=== PATIENT | male | born 1945 | race Caucasian/White ===

== ENCOUNTER → 2017-05-18 | Outpatient (CLI) | payer MEDICARE ==
--- NOTE | 2017-05-18 14:22 | CONS ---
CONSULTATION DATE OF SERVICE: 05/18/2017 71-year-old gentleman has been evaluated in the sleep center for possible obstructive sleep apnea-hypopnea syndrome. HISTORY OF PRESENT ILLNESS/SLEEP WAKE EVALUATION: Patient usual sleep schedule from around 10:00 p.m. to 7:30 a.m. No problems with falling asleep. No TV in bedroom. He sleeps with his on the side position with snoring and witnessed episodes of stopped breathing during the sleep. He wakes up from sleep 2 times with nocturia. No history of hypnagogic hallucinations, sleep paralysis or cataplexy. [place] Sleepiness Scale is 1. PAST MEDICAL HISTORY: Positive for hypertension, hyperlipidemia. PAST SURGICAL HISTORY: Bilateral knee replacement. Hernia repair. MEDICATIONS: Pravastatin, fiber caps, meloxicam, atorvastatin, aspirin. SOCIAL HISTORY: Negative for smoking or using alcohol. FAMILY HISTORY: Hypertension, heart problems, arthritis, emphysema, lung problems, during sleep. REVIEW OF SYSTEMS: Awakenings from sleep with nocturia during. PHYSICAL EXAM: GENERAL: gentleman without distress. VITAL SIGNS: BP 125/75, HR 56, RR 16, height 5 feet 10 inches, weight 308, BMI 44.1, neck 18 inches in circumference. Temperature 97.8, oxygen saturation at room air 95%. HEENT: PERRLA, EOMI, evaluation of oropharynx showed moderately low position of soft palate, some nasal septum deviation, possible restriction of nasal breathing. NECK: Supple, no JVD. Thyroid is not palpable. LUNGS: Clear to percussion and to auscultation. Good air exchange. No wheezing or rhonchi. HEART: S1, S2 regular. No murmurs, gallops, or rubs. ABDOMEN: Obese. Soft and nontender. Bowel sounds are present. No organomegaly appreciated. EXTREMITIES: No clubbing or cyanosis. REAL ESTATE INTERN: Awake, alert, and oriented X3. Cranial nerves 2 to 7 intact. There is no fasciculation or atrophy. noted. No focal deficits observed. IMPRESSION: 1. Snoring, witnessed episodes of stopped breathing during sleep, low position of soft palate, nocturia, wide neck, obstructive sleep apnea-hypopnea syndrome. 2. Obesity, BMI 44.13. 3. Hypertension. 4. Hyperlipidemia. 5. Status post bilateral knee replacement. 6. Status post hernia repair surgery. PLAN: 1. Polysomnography for evaluation of patient's breathing during sleep. 2. CPAP/BiPAP titration if sleep study confirms obstructive sleep apnea-hypopnea syndrome. 3. Preferable position during sleep on the side. 4. No driving if patient feels any sleepiness. Patient is aware of civil and criminal liability for unsafe driving. 5. I will see patient for follow up visit to explain results of testing and following plan. Thank you very much for referring this patient for consultation. Sincerely, Blu Ritchie MD, PhD, FAASM Diplomat of [place] [employer] [place] [employer] Geologist [facility] [place] MMODL / IJN: [id number] /
== END | disposition home or self-care (01) ==
LOC: SLEEP 13:20
PROVIDERS: ATTEND Internal Medicine
DX: G47.33 Obstructive sleep apnea (adult) (pediatric) (principal); E66.9 Obesity, unspecified; Z68.41 Body mass index [BMI] 40.0-44.9, adult; I10 Essential (primary) hypertension; E78.5 Hyperlipidemia, unspecified; Z96.653 Presence of artificial knee joint, bilateral; Z79.899 Other long term (current) drug therapy; Z79.1 Long term (current) use of non-steroidal anti-inflammatories (NSAID); Z79.82 Long term (current) use of aspirin; Z98.890 Other specified postprocedural states
CPT/HCPCS: 99211

== ENCOUNTER → 2017-07-20 | Outpatient (CLI) | payer MEDICARE ==
--- NOTE | 2017-07-20 15:02 | PN ---
PROGRESS NOTE DATE OF SERVICE: 07/20/2017 A 71-year-old gentleman who has been followed in the Sleep Center for treatment of severe obstructive sleep apnea-hypopnea syndrome. Patient had polysomnogram and CPAP titration and I discussed results of sleep studies with the patient and his family in details. Patient has very severe obstructive sleep apnea, was started on treatment with CPAP and able to use equipment basically every night without problems related to mask fitting, pressure, humidification. According to his , no snoring with the machine. [place] Sleepiness Scale today is 0. I checked his CPAP unit. Usage is 100% of the time more than 4 hours, average 9.1 hours. Pressure in the range of 12-1/2 cm of water. It is in automatic regimen in the range between 7 and 20. Apnea-hypopnea index for the last night 2.2, for the last month 4.4 average, which is perfect range. No significant periodic limb movements during the night according to the patient's . MEDICATIONS: Pravastatin, meloxicam, atorvastatin. PHYSICAL EXAM: Patient in no distress. BP 134/83, HR 68, RR 16, weight 318, temp 97.6, oxygen saturation at room air 93%. OROPHARYNX: Extremely low position of soft palate. ABDOMEN: Obese. Neck Supple, no JVD. Thyroid is not palpable. LUNGS Clear to percussion and to auscultation. Good air exchange. No wheezing or rhonchi. HEART S1, S2 regular. No murmurs, gallops, or rubs. EXTREMITIES No clubbing or cyanosis. BOX ICER Awake, alert, and oriented X3. Cranial nerves 2 to 7 intact. There is no fasciculation or atrophy. noted. No focal deficits observed. IMPRESSION: 1. Extremely severe obstructive sleep apnea-hypopnea syndrome; apnea-hypopnea index 87 with oxygen desaturation of 69.5 on control with CPAP. Patient demonstrated 100% compliance with treatment, benefitting from treatment. 2. Obesity. 3. Hypertension. 4. Periodic limb movements during titration. Clinically, no periodic limb movements at the present time. 5. Hyperlipidemia. 6. Status post hernia repair. 7. Status post bilateral knee replacement. PLAN: 1. Continue treatment with CPAP every night. 2. Losing weight. 3. Sleep hygiene with regular time bed for at least 8 hours. 4. No driving if feeling any sleepiness. 5. Followup visit in 10 months or earlier if patient has any problems. Thank you very much for allowing me to participate in management of your patient. Sincerely, Blu Ritchie MD, PhD, FAASM Diplomat of [employer] of [employer] Medicine Meat Cutting Teacher of [facility] [place] MMODL / SCOOTER: [id number] /
== END | disposition home or self-care (01) ==
LOC: SLEEP 13:51
PROVIDERS: ATTEND Internal Medicine
DX: G47.33 Obstructive sleep apnea (adult) (pediatric) (principal); G47.61 Periodic limb movement disorder; I10 Essential (primary) hypertension; E66.9 Obesity, unspecified; E78.5 Hyperlipidemia, unspecified; Z99.89 Dependence on other enabling machines and devices; Z79.899 Other long term (current) drug therapy; Z96.653 Presence of artificial knee joint, bilateral; Z98.890 Other specified postprocedural states

== ENCOUNTER → 2018-06-20 | Outpatient (CLI) | payer MEDICARE ==
--- NOTE | 2018-06-20 18:12 | PN ---
PROGRESS NOTE DATE OF SERVICE: 06/20/2018 72-year-old gentleman who has been followed in Sleep Center for treatment of obstructive sleep apnea-hypopnea syndrome. The patient continued to use his CPAP equipment every night for the whole night. According to his , no snoring with the machine. [place] Sleepiness Scale today is 0. I checked his CPAP unit range of the pressure 7-20. Most of the time pressure is 12.1 cm of water. Usage, 30/30 nights for more than 4 hours, average 9.2 hours. Leak is 16 L/minute which is acceptable. Apnea-hypopnea index for the last month 6.3, for the 6 months, 5.8. MEDICATIONS: Pravastatin, meloxicam, atorvastatin. PHYSICAL EXAM: Patient is in no distress. VITAL SIGNS: BP 123/75, HR 61, RR 18, height 5 feet 10 inches, weight 306.2, body mass index 43.9, temperature 97.9. Oxygen saturation at room air 93%. Oropharynx: Extremely low position of soft palate. ABDOMEN: Obese. Neck Supple, no JVD. Thyroid is not palpable. LUNGS Clear to percussion and to auscultation. Good air exchange. No wheezing or rhonchi. HEART: S1, S2 regular. No murmurs, gallops, or rubs. ABDOMEN: Obese. Soft and nontender. Bowel sounds are present. No organomegaly appreciated. EXTREMITIES No clubbing or cyanosis. LEAN MANUFACTURING ENGINEER Awake, alert, and oriented X3. Cranial nerves 2 to 7 intact. There is no fasciculation or atrophy. noted. No focal deficits observed. IMPRESSION: 1. Extremely severe obstructive sleep apnea-hypopnea syndrome; apnea-hypopnea index 87 with oxygen desaturation to 69.5% on control with CPAP. The patient demonstrated 100% compliance with treatment benefitting from treatment. 2. Obesity, patient lost 12 pounds since previous visit around 1 year ago. 3. Hypertension. 4. Hyperlipidemia. 5. Status post hernia repair. 6. Status post bilateral knee replacement. PLAN: 1. Patient will continue to use CPAP equipment every night. 2. Continue losing weight. 3. Sleep hygiene with regular time bed for at least 8 hours. 4. No driving if feeling sleepiness. 5. We will maintain all necessary prescription for CPAP supplies including nasal mask, tube, filters. Thank you very much for allowing me to participate in management of your patient. Sincerely, Blu Ritchie MD, PhD, FAASM Diplomat of [place] [employer] [employer] of Internal Medicine Washtub Worker Helper [facility] [place] MMANUEL / SCOOTER: [id number] /
== END ==
LOC: SLEEP 15:35
PROVIDERS: ATTEND Internal Medicine
DX: G47.33 Obstructive sleep apnea (adult) (pediatric) (principal); E66.9 Obesity, unspecified; I10 Essential (primary) hypertension; E78.5 Hyperlipidemia, unspecified; Z98.890 Other specified postprocedural states; Z96.653 Presence of artificial knee joint, bilateral; Z99.89 Dependence on other enabling machines and devices; Z79.1 Long term (current) use of non-steroidal anti-inflammatories (NSAID); Z79.899 Other long term (current) drug therapy

== ENCOUNTER → 2020-01-23 | Outpatient (CLI) | payer MEDICARE ==
--- NOTE | 2020-01-24 03:57 | SFUN ---
SLEEP CENTER FOLLOW UP NOTE DATE OF SERVICE: 01/23/2020. This 74-year-old gentleman has been followed in Sleep Center for treatment of obstructive sleep apnea-hypopnea syndrome. The patient continued to use his CPAP equipment every night for the whole night. No snoring with the machine. I checked his CPAP unit, range of the pressure 7 to 20, usage 30 out of 30 nights. Average usage is 8.9 hours per night. Leak is 16 L/minute, which is borderline. Apnea- hypopnea index is 3.7, which is in normal range. [place] Sleepiness Scale is 0. MEDICATIONS: Meloxicam, lisinopril, hydrochlorothiazide, aspirin, pravastatin, PHYSICAL EXAMINATION: GENERAL: Patient in no distress. VITAL SIGNS: BP 195/53, HR 72, RR 16, height 5 feet 10 inches, weight 316. Patient increased his weight on 10 pounds since previous visit. Body mass index 45.3, temperature 98.1 oxygen saturation at room air 95%. HEENT: PERRLA, EOMI. Oropharynx extremely low position of soft palate. Mallampati 4. NECK: Supple, no JVD. Thyroid is not palpable. LUNGS: Clear to percussion and to auscultation. Good air exchange. No wheezing or rhonchi. HEART: S1, S2 regular. No murmurs, gallops, or rubs. ABDOMEN: Obese. EXTREMITIES: No clubbing or cyanosis. JAWBONE BREAKER: Awake, alert, and oriented X3. Cranial nerves 2 to 7 intact. There is no fasciculation or atrophy. noted. No focal deficits observed. IMPRESSION: 1. Obstructive sleep apnea-hypopnea syndrome in extremely severe range, AHI 87 with oxygen saturation 69.5%. The patient demonstrated 100% compliance with treatment benefitting from treatment. 2. Obesity. 3. Hypertension. 4. Hyperlipidemia. 5. Status post hernia repair. 6. Status post bilateral knee replacement. PLAN: 1. Patient will continue to use PAP equipment every night for the whole night. 2. Sleep hygiene with regular time in bed for at least 7-1/2 to 8 hours. 3. Precautions related to driving. No driving if feeling sleepiness. 4. I will maintain all necessary prescription for PAP supplies including mask, tube, filters. 5. Watching weight. 6. No driving if feeling sleepiness. 7. Follow-up visit in 6 months or earlier if patient has any problems. Thank you very much for allowing me to participate in management of your patient. Sincerely, Blu Ritchie MD, PhD, FAASM Diplomat of [place] [employer] Specialties [employer] Board of Internal Medicine Paper Ruler of [facility] [place] MMANUEL / SCOOTER: [id number] /
== END | disposition home or self-care (01) ==
LOC: SLEEP 14:49
PROVIDERS: ATTEND Internal Medicine
DX: G47.33 Obstructive sleep apnea (adult) (pediatric) (principal); Z53.8 Procedure and treatment not carried out for other reasons

== ENCOUNTER → 2021-01-14 | Outpatient (CLI) | payer MEDICARE ==
--- NOTE | 2021-01-15 07:14 | SFUN ---
SLEEP CENTER FOLLOW UP NOTE DATE OF SERVICE: 01/14/2021 INTERVAL HISTORY: This 75-year-old gentleman has been followed in Sleep Center for treatment of obstructive sleep apnea-hypopnea syndrome. The patient is using his CPAP equipment every night for the whole night and getting his supplies on time. [place] Sleepiness Scale today is 5, which is normal. I checked his CPAP unit. Range of the pressure 7-20 with average pressure 11.8 cm of water. Usage is 30/30 nights for more than 4 hours with average usage 9 hours per night. Leak is 16 L/minutes which is borderline. Apnea-hypopnea index is 4.0, which is in normal range. MEDICATIONS: Meloxicam 15 mg once a day, lisinopril hydrochlorothiazide 20/12.5 mg once a day, aspirin 81 mg once a day, pravastatin 10 mg once a day. PHYSICAL EXAMINATION: GENERAL: Patient is in no distress. VITAL SIGNS: BP 119/71, HR 58, RR 15, height 5 feet 10 inches, weight 319.6, temperature 96.7, oxygen saturation 96%. Body mass index 45.7. The patient increased his weight by 3 pounds comparing to the previous visit. HEENT: PERRLA, EOMI, evaluation of oropharynx showed tongue protrudes midline. Extremely low position of soft palate, Mallampati 4. NECK: Supple, no JVD. Thyroid is not palpable. LUNGS: Clear to percussion and to auscultation. Good air exchange. No wheezing or rhonchi. HEART: S1, S2 regular. No murmurs, gallops, or rubs. ABDOMEN: Obese, soft and nontender. Bowel sounds are present. No organomegaly appreciated. EXTREMITIES: No clubbing or cyanosis. CIVIL ENGINEERING DESIGNER: Awake, alert, and oriented X3. Cranial nerves 2 to 7 intact. There is no fasciculation or atrophy. noted. No focal deficits observed. IMPRESSION: 1. Obstructive sleep apnea-hypopnea syndrome. Patient demonstrated 100% compliance with treatment. Normal respirations on CPAP, originally extremely severe sleep apnea with apnea-hypopnea index 87 and oxygen desaturation to 69%. 2. Obesity. 3. Hyperlipidemia. 4. Hypertension. 5. Status post hernia repair. 6. Status post bilateral knee replacement. PLAN: PLAN 1. Patient will continue to use PAP equipment every night for the whole night. 2. Sleep hygiene with regular time in bed for at least 7-1/2 to 8 hours. 3. Precautions related to driving. No driving if feeling sleepiness. 4. I will maintain all necessary prescription for PAP supplies including mask, tube, filters. 5. Aggressive weight loss program. 6. Follow-up visit in 6 months or earlier if patient has any problems. Thank you very much for allowing me to participate in the management of your patient. Sincerely, Blu Ritchie MD, PhD, FAASM Diplomat of [place] [employer] Specialties Sleep Medicine Board of [place] Board of Internal Medicine Prepared Foods Associate of [facility] [place] MMODL / IJN: [id number] /
== END ==
LOC: SLEEP 10:09
PROVIDERS: ATTEND Internal Medicine
DX: G47.33 Obstructive sleep apnea (adult) (pediatric) (principal); E66.9 Obesity, unspecified; E78.5 Hyperlipidemia, unspecified; I10 Essential (primary) hypertension; Z96.653 Presence of artificial knee joint, bilateral; Z98.890 Other specified postprocedural states; Z68.42 Body mass index [BMI] 45.0-49.9, adult; Z79.899 Other long term (current) drug therapy

== ENCOUNTER → 2021-11-04 | Outpatient (CLI) | payer MEDICARE ==
[2021-11-04 08:42] VITALS: PULSE 76; RESP 16; TEMP 98
--- NOTE | 2021-11-04 08:47 | P.CON ---
Consult Note - . Consult date: 11/04/21 Assessment/Plan:: HISTORY OF PRESENT ILLNESS: 75 yr old male with at side as a referral from Dr Beebe presents today with chronic and severe lower back pain secondary to retrolisthesis, disc bulges, neuroforaminal stenoses and facet arthropathy for evaluation. Patient states his lower back pain is 8 out of 10 in intensity every morning, dull, achy, constant, stiff sensation but with rest and stretching, it reduces to 4 out of 10 in intensity of which it is currently. Admits to sharp, burning radiating pain to the back of the hips. Pain is relieved with medications (Tylenol, aspirin), injections (2 sets of facet blocks of the medial branches L4-L5, L5-S1 with 80% relief x 5 days each), physical therapy 1 year ago, home- based stretching regimen, repositioning and rest. PMH: HTN, Hyperlipidemia PSH: TKA x 2. Carpal Tunnel Release. Hernia Repair. SH: No tobacco use. Occasional ETOH use. No illicit drug use. and lives with spouse. FH: Non contributory All: NKDA Meds: See list REVIEW OF ORGAN SYSTEMS: CONSTITUTIONAL: No fevers or chills. No recent weight loss. HEENT: No visual acuity loss, eye pain, difficulties with hearing. No nosebleeds. No difficulty swallowing. RESPIRATORY: Denies any troubles with breathing or dyspnea on exertion. CARDIOVASCULAR: Denies any chest pain, palpitations, or recent heart attacks. GASTROINTESTINAL: Denies fatty food intolerance. Has change in bowel habits and gas bloat. GENITOURINARY: Denies any blood in urine. Has increased urinary frequency. NEUROLOGICAL: + numbness and tingling along the distal extremities. No seizure disorders or headaches. MUSCULOSKELETAL: + back pain SKIN: No skin cancer. No rash. PSYCHIATRIC: Denies current depression or suicidal thoughts. ENDOCRINE: Denies current thyroid disorders. Denies any blood sugar glucose intolerance. HEME/LYMPHATIC: Denies any lumps and bumps around the neck. History of deep venous thrombosis. ALLERGY/IMMUNOLOGY: No immunoglobulin therapy. No immune deficiencies. BREAST: Denies current breast lumps, pain or nipple discharge. Physical Examinations : Constitutional : Cooperative , not in acute distress . HEENT: Neck supple. No Lymphadenopathy. Normal thyroid size . Eyes no ptosis , no icterus, no photophobia . Hearing intact. Normal oropharynx. No Thrush. Respiratory : Chest clear to auscultations bilaterally. No wheezing. No rhonchi. Cardiovascular : Regular rate and rhythm , S1 / S2. No S3 . No S4. Gastrointestinal : Abdomen soft. No tenderness. Bowel sounds x 4. No organomegaly . OBESE ABD. Genitourinary : Deferred. Neurologic : Cranial nerve II to XII intact. No focal neurological deficits. Psychiatric : alert & oriented x 3. Matching mood & appropriate affect. Judgment & insight intact. Lymphatic No Lymphadenopathy. Musculoskeletal : Cervical Spine Motor strength in the deltoid and biceps: Normal right side. Normal Left side Motor strength biceps and the wrist extensors: Normal right side . Normal left side Motor strength in the triceps muscle: Normal right side. Normal left side Deep tendon reflexes: Normal at the biceps. Normal at Brachioradialis. Normal at triceps Cervical facet loading test: positive bilaterally Spurling test: positive bilaterally Neck distraction test: positive bilaterally J Luis sign: positive bilaterally Lumbar spine Motor strength lower extremities ,thigh and legs 5/5 Right side , 5/5 Left side Deep tendon reflexes : Normal Knee Jerk. Normal Ankle Jerk Vertebral body tenderness over Lumbar facet Loading Test: positive Right / positive Left Range of motion of the lumbar spine Flexion 30 degrees, extension 10 degrees Straight Leg Raise test: Left/ Right positive at degree Angelica test: positive right / positive left. Severe tenderness over the Sacroiliac joint on the Right / Left sides Gaenslen test: positive bilaterally Seated flexion test: positive bilaterally. Imaging: MRI without contrast of the Lumbar spine from 06/04/19 reviewed. Assessment/ Plan : Lumbar DH, Lumbar DDD, Lumbar spondylosis Recommendation of RFA of the BL L4-L5, L5-S1. Risks, benefits of procedure discussed and patient verbalized understanding. Denies anti- coagulant use or medical history of diabetes. All questions answered. I have spent greater than 50 minutes on patient care today. Dr Sweet was available by phone for the evaluation of this patient. The time was used to review the medical records including relevant urine studies and Prescription history (MAPs), review of the available imaging, evaluation and examination of the patient, coordination of care with the medical staff and if applicable referring physicians, as well as creation of the medical record PQRS Measure Charge Sheet Mode of Arrival: Ambulatory - Pain Location Bilateral Lower Back Non-Pharmacological Interventions: Heat, Ice, Physical Therapy Pharmacological Interventions: PRN Medication PQRS Narrative: Pain Intensity [Bilateral 5 Lower Back] Scale Used Numeric (1 - 10) Hx Alcohol Use (MH) No
== END ==
LOC: PNWHC3 07:56
PROVIDERS: ATTEND Specialist
DX: M51.36 Other intervertebral disc degeneration, lumbar region (principal); M47.816 Spondylosis without myelopathy or radiculopathy, lumbar region; M51.26 Other intervertebral disc displacement, lumbar region; I10 Essential (primary) hypertension; E78.5 Hyperlipidemia, unspecified
CPT/HCPCS: 99211

== ENCOUNTER 2021-12-03 09:20 | Day surgery (SDC) | payer MEDICARE ==
[2021-12-02 10:31] VITALS: BMI 40.0
[~2021-12-03 09:20] MED LIST: LACTATED RINGERS 1,000 ML IV SCH; LIDOCAINE 1% (10MG/ML) FOR IV START INTRADERMA PRN
[2021-12-03 09:43] VITALS: TEMP 97.6
[2021-12-03] MEDS ORDERED: MIDAZOLAM 2 MG/2 ML VIAL ONE (10:30)
[2021-12-03] MEDS ORDERED: ROPIVACAINE 5MG/ML 20ML VIAL ONE (10:30)
[2021-12-03] MEDS ORDERED: fentaNYL (PF) 50 MCG/ML 2 ML AMP ONE (10:30)
[2021-12-03] MEDS ORDERED: methylPREDNISolone ACETATE 40 MG/ML 1 ML VIAL ONE (10:30)
--- NOTE | 2021-12-03 11:04 | P.PCN ---
Date of Procedure: 12/03/21 Procedure(s) Performed: PREOPERATIVE DIAGNOSIS: 1-Lumbar Spondylosis with Facet Arthropathy without myelopathy. 2- Lumber degenerative disc disease. POSTOPERATIVE DIAGNOSIS: 1- Lumbar Spondylosis with Facet Arthropathy without myelopathy. 2- Lumber degenerative disc disease. PROCEDURES : Bilateral Radiofrequency thermocoagulation, L3 , L4 , and L5 medial branch, with fluoroscopic guidance (fluoroscopy images available in the radiology department) ( to denervate the facet joint at bilateral L4-5 ,and L5-S1 levels ). ANESTHESIA: Monitored anesthesia care as per anesthesia department . EBL: Minimal PROCEDURE INDICATION: The patient with low back pain secondary to lumbar facet arthropathy who had more than 50% relief of her pain with previous diagnostic lumbar medial branch block with bupivacaine. PROCEDURE DESCRIPTION / TECHNIQUE: The patient was seen and identified in the preoperative area. Risks, benefits, complications, including but not limited to risk of infection ,bleeding , allergic reactions to the medications and no complete pain releife , and alternatives were discussed with the patient, the patient agreed to proceed with the procedure and signed the consent. IV was started. Vital signs remained stable throughout the procedure. Patient was taken to the OR and time out was completed. The patient was placed in the prone position on the procedure table. The lumber area was prepped and draped in the usual sterile fashion. . Vital signs were closely monitored during the procedure .IV sedation was used during the procedure to decrease patients anxiety. Using AP and then oblique fluoroscopy, the ``eye of the Seth dog co rresponding to the connection between the superior and transverse articular processes of right L3, L4, and L5 were identified, marked, and localized with 1% lidocaine. Subsequently, a 18 -lj radiofrequency cannula with a 10- mm active tip was advanced guided by fluoroscopy to each of the``eyes of the Seth dog at right L3, L4, and L5. Each site then underwent sensory testing at 50 Hz and 0 to 1 volt and motor testing at 2.5 Hz and 0 to 3 volt with local stimulation, but no radicular symptoms down the legs. Thereafter each sites underwent radiofrequency thermocoagulation at 80 degrees celsius for 90 seconds after injecting 0.5 ml of PF Ropivacaine 1ml, then after the thermocoagulation done , 1 ml of the block solution containing Depo-Medrol 20 mg and 3 ml of Ropivacaine 0.5% was injected at the right L3 , L4 , and L5 , levels after negative aspiration of CSF and blood and with no paresthesias. Cannulas were retracted while injecting lidocaine 1% until the needle is out. The same procedure was repeated at the level of Left L3, L4, and L5 levels. At the end of the procedure, the skin was cleansed and bandages were applied. COMPLICATIONS: No acute complications. DISPOSITION / PLANS: The patient was placed in a supine position and transferred to the recovery area in a stable condition for observation and was discharged from the recovery room after meeting discharge criteria. Home discharge instructions given to the patient by the staff. The patient was reexamined prior to discharge. The patient will schedule a follow up in the clinic in 2-4 weeks.
[2021-12-03] MEDS ORDERED: IV FLUID CONTINUATION 1,000 ML IV ONE (11:08)
[2021-12-03 11:12] VITALS: PULSE 62; RESP 16
[2021-12-03 11:36] VITALS: BP 114/76
--- NOTE | 2021-12-03 11:46 | FL ---
Fluoroscopy INDICATION: Pain FINDINGS: Fluoroscopy time: 32 seconds. Images obtained: 6. IMPRESSIONS: 1. Documentation of fluoroscopy.
== END 2021-12-03 11:53 | disposition home or self-care (01) ==
LOC: ORPAIN 09:20
PROVIDERS: ATTEND Specialist
DX: M47.816 Spondylosis without myelopathy or radiculopathy, lumbar region (principal)
CPT/HCPCS: 64635; 64636; J2250; J1030; J3010; J2795

== ENCOUNTER → 2021-12-27 | Outpatient (CLI) | payer MEDICARE ==
[2021-12-27 09:26] VITALS: BP 146/78; PULSE 53; RESP 18
--- NOTE | 2021-12-27 09:44 | P.PAINPG ---
Objective - Vital Signs Vital signs: Vital Signs Temp Pulse 53 L 12/27/21 09:22 Resp 18 12/27/21 09:22 BP 146/78 12/27/21 09:22 Pulse Ox 98 12/27/21 09:22 FiO2 Intake & Output 12/26/21 12/27/21 12/27/21 18:59 06:59 18:59 Weight 133.81 kg PQRS Measure Charge Sheet Mode of Arrival: Ambulatory Comment: A 76 yr old male with at side with a history of severe and chronic low back pain secondary to lumbar degenerative disc diseases and lumbar spondylosis with facet arthropathy presents today for evaluation s/p BL RFA L4-L5, L5-S1. He states he experienced 75% pain relief s/p procedure. Pain level is currently at 4/10 in intensity, sore/achy/sharp in the lower aspects of his lumbar spine but escalates as high as 9/10 with standing/walking for periods of 10 min or more, or with laying on his R side. Pain is alleviated with PT in 2019, home exercise regimen, chiropractic treatments in the past, medications (Tylenol arthritis BID), repositioning and rest. Interventional pain procedures completed include BL RFA L3-L5 Patient is currently on Tylenol arthritis Patient denies any side effects of the medication(s), denies excessive drowsiness or sleepiness, denies suicidal ideation and reports that the current pain medication is helping to control the pain and improve activities of daily living. Patient denies any motor or sensory deficits. Patient denies any fever or night sweats, denies any change in the bowel movements or urination. Physical Examination: -Constitutional: Cooperative. Not in acute distress . - Neurologic: Cranial nerve II to XII intact. No focal neurological de ficits. - Psychatric: Alert & oriented x 3. Matching mood & appropriate affect. Judgment and insight intact. - Musculoskeletal: Cervical spine: Muscle bulk/ tone/ strength in the bilateral upper extremities normal Vertebral body tenderness to palpation over Spurling test positive Distraction test positive Facet loading test positive Thoracic spine Muscle bulk / tone/ strength in the bilateral paraspinal muscles normal Vertebral body tender to palpation over Facet loading test positive Lumbar spine: Motor bulk/ tone/ strength lower extremities , thigh and legs : 5/5 Deep tendon reflexes : Normal Knee Jerk. Normal Ankle Jerk . Vertebral body tenderness to palpation over Lumbar Facet Loading Test positive Straight Leg Raise: positive at 30 degrees right side/ left side Gaenslen's Test positive Sacral spine : Severe tenderness over the Sacroiliac joint: right side / left side Range of motion: Flexion of the lumbar spine <60 degrees Range of motion: Extension of the lumbar spine <20 degrees Gaenslen's Test positive Kwadwo's Test positive Angelica test: positive right side / left side Thigh Thrust Test Sacral Thrust Test Assessment and plan: Chronic low back pain secondary to lumbar degenerative disc disease , lumbar spondylosis with facet arthropathy without myelopathy Pt exhibited sufficient and substantial pain relief status post procedure. Discussed home based pain modifying regimen. Also filled diclofenac gel. Patient may return trough office on an as-needed basis. Risks, benefits of procedure discussed and pt verbalized understanding. Denies anticoagulant use or medical history of diabetes. All patient questions answered MAPS reviewed and it was appropriate. Prescription for Diclofenac gel, apply as directed, disp 1 tube w 1 refill. I have spent less than 30 minutes on patient care today. Dr Sweet was available by phone for the evaluation of this patient. The time was used to review the medical records including relevant urine studies and Prescription history (MAPs), review of the available imaging, evaluation and examination of the patient, coordination of care with the medical staff and if applicable referring physicians, as well as creation of the medical record - Pain Location Lower Back Non-Pharmacological Interventions: Chiropractic Treatment, Home Exercise, Inactivity, Physical Therapy, Position/Reposition, Sitting, Stretching Pharmacological Interventions: Block, PRN Medication PQRS Narrative: Blood Pressure 146/78 Pain Intensity [Lower Back] 4 Scale Used Numeric (1 - 10) Hx Alcohol Use (MH) No Home Medications: Ambulatory Orders Acetaminophen [Tylenol] 500 mg PO Q4-6H PRN 12/02/21 Aspirin [Children's Aspirin] 81 mg PO DAILY 12/02/21 Lisinopril-Hctz 20-12.5 mg [Zestoretic 20-12.5] 1 tab PO DAILY 12/02/21 Pravastatin Sodium [Pravachol] 10 mg PO DAILY 12/02/21 calcium polycarbophiL [Fibercon] 625 mg PO DAILY 12/02/21 Diclofenac Sodium Gel [Voltaren Gel] 100 gm TOPICAL BID 30 Days #100 gm 12/27/21 Controlled Substance Measures - Controlled Substance Measures Is patient prescribed a controlled substance at discharge?: No
== END ==
LOC: PNWHC3 09:08
PROVIDERS: ATTEND Specialist
DX: M51.36 Other intervertebral disc degeneration, lumbar region (principal); M47.816 Spondylosis without myelopathy or radiculopathy, lumbar region; G89.29 Other chronic pain
CPT/HCPCS: 99211

== ENCOUNTER → 2022-05-25 | Outpatient (CLI) | payer MEDICARE ==
--- NOTE | 2022-05-25 14:45 | P.PN ---
Subjective DATE: 05/25/2022 FOLLOW UP VISIT. Patient with obstructive sleep apnea hypopnea syndrome return to sleep center for follow-up visit. Information from previous visit have been reviewed. Patient is using PAP equipment every night for the whole night, getting PAP supplies in time. The patient does not have significant problems with the mask, PAP unit and humidification. [place] sleepiness scale is 3, which is normal. I checked information from PAP unit. PAP unit pressure 7-20, average 11.3 cm H2O. Usage is 100 % for more then 4 hours, average 9.7 hours per night. Leak is 23 l/m, which is in acceptable range. Apnea Hypopnea Index is 3.8, which is normal. MEDICATIONS:1. Pravastatin 20 mg once a day 2. Lisinopril/ hydrochlorothiazide 20-12.5 mg once a day 3. Carvedilol 3.125 mg twice a day 4.Xarelto 20 mg once a day 5. B12 During physical exam: GENERAL: A pleasant patient without any distress. VITAL SIGNS: BP 105/71, HR 94, RR 16, weight 282, BMI 40.4 temperature 98.0, oxygen saturation at room air 95 % . HEENT: PERRLA, EOMI.low position of soft palate, Mallapati 4 . NECK: Supple. No JVD. LUNGS: Clear to percussion and to auscultation. Good air exchange. No wheezing or rhonchi. HEART: S1, S2 regular. ABDOMEN: Soft and nontender. Obese EXTREMITIES: No clubbing or cyanosis. TARGET AIRCRAFT CONTROLLER: Awake, alert, and oriented x3. No focal deficit. Impressions: 1. Obstructive sleep apnea-hypopnea syndrome. Patient demonstrated great compliance with treatment, benefiting from treatment. 2. Obesity, patient lost about 40 pounds. 3. Hypertension. 4. Hyperlipidemia. 5. Status post bilateral knee replacement. 6. Status post hernia repair. Plan: 1. Continue using PAP equipment every night for the whole night. 2. To change air filter at least 1-2 times per month. 3. PAP unit should stay lower then position of the head. 4. Advised patient to remove all remaining water from humidifier canister daily and make it dry after each usage. Refill canister with fresh distilled water before each usage. 5. Sleep hygiene with regular time in bed for at least 8 hours. 6. Precautions related to driving. No driving if feel any sleepiness. 7. I will maintain prescription for PAP supplies including mask, tube, filters. 8. Follow up visit in 6 months or earlier if patient has any problems. 9. Watching and continue losing weight. Thank you very much for allowing me to participate in the management of your patient. Blu Ritchie MD, PhD, FAASM. Diplomat of [place] [employer], Sleep Medicine Board by [employer] [employer] [facility] [place]
== END | disposition home or self-care (01) ==
LOC: SLEEP 14:10
PROVIDERS: ATTEND Internal Medicine
DX: G47.33 Obstructive sleep apnea (adult) (pediatric) (principal); E11.9 Type 2 diabetes mellitus without complications; I10 Essential (primary) hypertension; E66.9 Obesity, unspecified; Z98.890 Other specified postprocedural states; Z96.653 Presence of artificial knee joint, bilateral

== ENCOUNTER 2022-06-06 08:09 | Day surgery (SDC) | payer MEDICARE ==
[2022-06-02 10:29] VITALS: BMI 42.0
[~2022-06-06 08:09] MED LIST changes: +SODIUM CHLORIDE 0.9% 1,000 ML IV SCH
[2022-06-06 08:54] VITALS: RESP 18; TEMP 98.8
[2022-06-06] MEDS ORDERED: PROPOFOL 10 MG/ML 20 ML VIAL IV ONE (09:35)
[2022-06-06] MEDS ORDERED: LIDOCAINE 2% INJ 20 MG/ML (2 ML VIAL) ONE (09:35)
--- NOTE | 2022-06-06 09:47 | P.HPCAR ---
History of Present Illness This is Dr. Carver dictating an H/P on this patient The patient was interviewed and examined IMPRESSION / ASSESSMENT: Persistent atrial fibrillation Recently started on flecainide Started on xarelto in April Failed chemical cardioversion with flecainide Increased BMI Hypertension PLAN: Proceed with electrical cardioversion today Twelve-lead EKG thereafter HPI Patient complains of tiredness and fatigue and shortness of breath He has failed flecainide for chemical cardioversion of atrial fibrillation He takes Xarelto 20 mg daily His blood pressure is well controlled He is steadily losing weight and he has lost over 40 pounds with dietary alterations He denies any chest discomfort or undue shortness of breath no cough phlegm or expectoration ROS: No fever chills or rigors, no cough, phlegm or expectoration, no nausea, vomiting or diarrhea, no hematuria, dysuria, no musculoskeletal complaints, no strokes or seizures, no skin lesions. EXAMINATION: Afebrile 98.8F pulse rate irregular 9500 beats a minute, blood pressure normal 129/83 mmHg Pulse ox 97% Breath sounds are clear no rhonchi no crackles Orthopnea No lower extremity edema No JVD Increased BMI BMI 42 REVIEW OF LABS, ECG & MEDICAL DATA Currently on Pravachol, lisinopril hydrochlorothiazide, carvedilol, xarelto and flecainide Physical Exam Vitals: Vital Signs Temp Pulse Resp BP Pulse Ox 06/06/22 08:35 98.8 F 95 18 129/83 97 Intake and Output 06/05/22 06/06/22 06/06/22 22:59 06:59 14:59 Intake Total 0 Balance 0 Intake: IV 0 Other: Weight 129 kg Past Medical History Past Medical History: Atrial Fibrillation, Hyperlipidemia, Hypertension, Osteoarthritis (OA), Sleep Apnea/CPAP/BIPAP Additional Past Medical History / Comment(s): C-PAP MACHINE, LOWER BACK PAIN (RECEIVES INJECTIONS) History of Any Multi-Drug Resistant Organisms: None Reported Past Surgical History: Hernia Repair, Orthopedic Surgery Additional Past Surgical History / Comment(s): VEGA TOTAL KNEES., RECEIVES BACK INJECTIONS (DR HART) Past Anesthesia/Blood Transfusion Reactions: No Reported Reaction Past Psychological History: No Psychological Hx Reported Smoking Status: Never smoker Past Alcohol Use History: Occasional Past Drug Use History: None Reported - Past Family History Mother Family Medical History: No Reported History Physical Examination Vital Signs Temp Pulse Resp BP Pulse Ox 06/06/22 08:35 98.8 F 95 18 129/83 97 Intake and Output 06/05/22 06/06/22 06/06/22 22:59 06:59 14:59 Intake Total 0 Balance 0 Intake: IV 0 Other: Weight 129 kg Results Current Medications Generic Name Dose Route Start Last Admin Trade Name Aleksandrq PRN Reason Stop Dose Admin Sodium Chloride 1,000 mls @ 50 mls/hr 06/06/22 06:06 06/06/22 08:40 Saline 0.9% IV 07/06/22 06:07 0 mls .Q20H LUDWIG Administration Lactated Ringer's 1,000 mls @ 20 mls/hr 06/06/22 06:06 Lactated Ringers IV 07/06/22 06:07 .Q24H LUDWIG Lidocaine HCl 0.1 ml 06/06/22 06:06 Lidocaine 1% (10mg/Ml) For Iv Start INTRADERMA 07/06/22 06:07 PER PROTOCOL PRN IV Start Intake and Output 06/05/22 06/06/22 06/06/22 22:59 06:59 14:59 Intake Total 0 Balance 0 Intake: IV 0 Other: Weight 129 kg Patient Weight 06/07/22 06:59 Weight 129 kg
--- NOTE | 2022-06-06 10:34 | P.EPPROC ---
- EP Procedure Note Electrophysiology Procedure Note: Diagnosis Persistent atrial fibrillation, symptomatic with tiredness and fatigue Failed chemical cardioversion with flecainide Patient on xarelto 20 mg by mouth daily Procedure: Electrical cardioversion Under conscious sedation at 200 J shock in the biphasic orientation was unsuccessful in restoring sinus mechanism A 400 J shock with two simultaneous cardioverters /cardioversions one in the AP configuration, one in the anterior apical configuration successfully restored sinus rhythm Heart rate in the 50s sinus mechanism Twelve-lead EKG shows sinus mechanism normal LA narrow QRS heart rate 61 in the awake state Plan Continue Xarelto Continue flecainide 50 mg twice daily Continue antihypertensive therapy Follow-up with Dr. Carver in 4-6 weeks Continue weight loss management If this fails, we will proceed with pulmonary vein isolation/A. fib ablation for management of symptomatic atrial fibrillation
--- NOTE | 2022-06-06 10:38 | P.PRLE ---
RE: EfraínLee Mr. Kenny underwent successful electrical cardioversion for atrial fibrillation, on low-dose flecainide Hopefully he maintains sinus rhythm and continues with his weight loss I will discuss in A. fib ablation with him in the future, especially if he is unable to maintain sinus rhythm He will continue xarelto Thank you for entrusting me with the care of the patient Warm regards Sincerely Ramos Carver
[2022-06-06 12:16] VITALS: BP 108/64; PULSE 60
== END 2022-06-06 12:10 | disposition home or self-care (01) ==
LOC: CATHEP 08:09
PROVIDERS: ATTEND Internal Medicine Clinical Cardiac Electrophysiology
DX: I48.19 Other persistent atrial fibrillation (principal); I10 Essential (primary) hypertension; E66.01 Morbid (severe) obesity due to excess calories; Z68.41 Body mass index [BMI] 40.0-44.9, adult; E78.5 Hyperlipidemia, unspecified; F10.10 Alcohol abuse, uncomplicated; M19.90 Unspecified osteoarthritis, unspecified site; G47.33 Obstructive sleep apnea (adult) (pediatric); Z99.89 Dependence on other enabling machines and devices; Z86.79 Personal history of other diseases of the circulatory system; Z79.01 Long term (current) use of anticoagulants; Z79.02 Long term (current) use of antithrombotics/antiplatelets; Z79.82 Long term (current) use of aspirin; Z79.83 Long term (current) use of bisphosphonates; Z79.899 Other long term (current) drug therapy; Z98.890 Other specified postprocedural states; Z96.653 Presence of artificial knee joint, bilateral
CPT/HCPCS: 92960; J2704; J2001

== ENCOUNTER 2022-10-20 08:50 | Day surgery (SDC) | payer MEDICARE ==
[2022-10-17 10:56] VITALS: BMI 37.4
[~2022-10-20 08:50] MED LIST changes: -LIDOCAINE 1% (10MG/ML) FOR IV START INTRADERMA PRN
[2022-10-20] MEDS ORDERED: SODIUM CHLORIDE 0.9% 1,000 ML IV ONE ×2 (09:12→14:27)
[2022-10-20] MEDS ORDERED: HEPARIN SODIUM,PORCINE 10,000 UNIT/ML 1 ML VIAL ONE (10:11)
[2022-10-20] MEDS ORDERED: SUCCINYLCHOLINE CHLORIDE 200 MG/10 ML VIAL IV ONE (10:11)
[2022-10-20] MEDS ORDERED: LIDOCAINE 2% INJ 20 MG/ML (2 ML VIAL) ONE (10:11)
[2022-10-20] MEDS ORDERED: WATER FOR INJECTION, STERILE 10 ML VIAL IV ONE (10:11)
[2022-10-20] MEDS ORDERED: PHENYLEPHRINE-0.9% NACL SYG 1,000 MCG/10 ML SYRINGE ONE (10:11)
[2022-10-20] MEDS ORDERED: PROPOFOL 10 MG/ML 20 ML VIAL IV ONE (10:11)
[2022-10-20] MEDS ORDERED: ePHEDrine 50 MG/ML 1 ML VIAL ONE (10:11)
[2022-10-20] MEDS ORDERED: fentaNYL (PF) 50 MCG/ML 2 ML AMP ONE (10:11)
[2022-10-20] MEDS ORDERED: LIDOCAINE 1% INJ 10MG/ML (20 ML MDV) ONE (10:46)
[2022-10-20] MEDS ORDERED: HEPARIN SOD,PORK IN 0.45% NACL 25,000 UNIT in 0.45% NACL 1 250ML.BAG IV ONE (10:55)
[2022-10-20] MEDS ORDERED: LIDOCAINE 1% INJ 10MG/ML (20 ML MDV) SQ ONE (10:57)
[2022-10-20] MEDS ORDERED: IOPAMIDOL-370 100ML BTL INJ ONE (13:00)
[2022-10-20] MEDS ORDERED: ACETAMINOPHEN TAB 325 MG TAB PO PRN (14:11)
--- NOTE | 2022-10-20 14:21 | P.EPPROC ---
- EP Procedure Note Electrophysiology Procedure Note: PROCEDURE A. fib ablation/PVI and left atrial roof ablation DIAGNOSIS Persistent Atrial fibrillation, symptomatic, refractory to therapy Underlying sick sinus syndrome RESULT No left atrial appendage mass seen on intracardiac echo, mild thickening of the pericardium over the LV without any effusion Successful A. fib ablation/pulmonary vein isolation of all veins using cryo- ablation Complete entrance block in all 4 veins confirmed Transient phrenic nerve paresis during RIPV cryo-ablation, only 102 seconds of cryotherapy energy delivery Transient phrenic nerve paresis during RSP V cryoablation, only 111 seconds of cryo-energy delivered Very sharp rapid signals in the carinal region between the 2 right-sided veins, necessitating RF ablation in the future to isolate the right-sided venous region Esophageal deflection YES Electrical cardioversion with a synchronized shock across the chest YES / NO PROCEDURE DETAILS Written informed consent prior to procedure. Patient brought to the EP lab. General anesthesia given. Heparin administered. A city maintained above 300 se conds Both groins prepped and draped per protocol and venous sheaths placed. Esophagus intubated, circa catheter for temperature monitoring an endoscope for possible esophageal deflection. Phrenic nerve monitoring performed. Esophageal temperature monitoring performed. Esophageal deflection performed if circa catheter overlapping with the balloon or circa temperature less than 27.5C Intracardiac echocardiography performed. Pericardium evaluated. Left atrial appendage evaluated. Left atrium evaluated along with pulmonary veins Transseptal catheterization performed under fluoroscopic guidance and intracardiac echo guidance Cryoablation sheath exchanged, balloon catheter along with achieve catheter placed in the left atrium. Pulmonary veins isolated in the following sequence: Left superior pulmonary vein followed by left inferior pulmonary vein, followed by right inferior pulmonary vein and lastly right superior pulmonary vein. Phrenic nerve stimulation along with capture thresholds within the SVC and right superior pulmonary vein to identify the phrenic nerve proximity to the cryo- balloon. Pulmonary veins isolated and confirmed with entrance and exit block. Phrenic nerve integrity confirmed at the end of the procedure Ablation of the left atrial roof performed with sequential lesions from the left superior to the right superior pulmonary veins. Ablation of the electrograms confirmed Electrical cardioversion performed for persistence of atrial fibrillation despite successful ablation. Diagnostic catheters for the high right atrium, His bundle, coronary sinus mike lori. LA and RA pressures recorded RA pressure: 20/06/15 LA pressure: 21/03/14 Diagnostic EP study with coronary sinus pacing and recording Baseline measurements: Sinus cycle length 810 ms, UT interval 160 ms, QRS 108 ms and QT 405 ms HV interval 44 ms Venous sheaths were removed and hemostasis assured with a closure device. Patient extubated and transferred to recovery Increase procedural time During ablation multiple attempts had to be made to move the left-sided esophagus a safe distance of the from the pulmonary vein draining cryoablation, to avoid excessive thermal cooling of the esophagus This took extra time and effort to keep the esophagus a safe distance away from the cryoablation balloon. During ablation of the right-sided veins, phrenic nerve stimulation was noted within the right-sided veins. The cryo balloon in close proximity to this location, during standard technique for occlusion of the vein, posing a risk to the phrenic nerve. Phrenic 12 paresis was noted during RIPV ablation. Immediate recovery of the phrenic nerve Detailed mapping of the phrenic nerve within the SVC and the RSP V upper and lower tributaries Phrenic nerve paresis during our RSPV ablation Despite short lesions, acute isolation was achieved. However sharp electrograms in the carinal region, necessitating a redo ablation with RF in the future PROCEDURES PERFORMED Diagnostic EP study CS pacing and recording Left and right transseptal catheterization Catheter the mapping of the tachycardia Intracardiac echocardiography Pulmonary vein isolation with transseptal and comprehensive EPS, [id number] Extended procedure duration Left atrial roof line, [id number] Electrical cardioversion with a synchronized shock across the chest [id number]
[2022-10-20] MEDS ORDERED: ACETAMINOPHEN IV (For NPO) 1,000 MG in EMPTY BAG 1 BAG IVPB ONE (15:00)
[2022-10-20] MEDS: carvediloL 3.125 MG TAB PO SCH (17:20)
[2022-10-20] MEDS: APIXABAN 5 MG TAB PO SCH (20:30)
[2022-10-20] MEDS ORDERED: PRAVASTATIN SODIUM 20 MG TAB PO SCH (21:00)
[2022-10-21 06:42] VITALS: BP 123/81; PULSE 60; RESP 18; TEMP 98.1
[2022-10-21] MEDS: carvediloL 3.125 MG TAB PO SCH (08:26)
[2022-10-21] MEDS: APIXABAN 5 MG TAB PO SCH (08:27)
[2022-10-21] MEDS ORDERED: LISINOPRIL-HCTZ 20-12.5 MG 1 EACH TAB PO SCH (09:00)
== END 2022-10-21 11:59 | disposition home or self-care (01) ==
LOC: CATHEP 08:50 → 6NMEDSUR 13:13 → CATHEP 10-21 11:59
PROVIDERS: ATTEND Internal Medicine Clinical Cardiac Electrophysiology
DX: I48.19 Other persistent atrial fibrillation (principal); I49.5 Sick sinus syndrome
CPT/HCPCS: 93656; 93657; C1894 ×2; C1769 ×4; C1760; C1730 ×2; C1759; C1893; C1733; C1766; J2001; J0131; Q9967; J1644

== ENCOUNTER → 2023-06-07 | Outpatient (CLI) | payer MEDICARE ==
--- NOTE | 2023-06-07 11:20 | P.PN ---
Subjective DATE: 06/07/2023 FOLLOW UP VISIT. Patient with obstructive sleep apnea hypopnea syndrome return to sleep center for follow-up visit. Information from previous visit have been reviewed. Patient is using PAP equipment every night for the whole night, getting PAP supplies in time. The patient does not have significant problems with the mask, PAP unit and humidification. [place] sleepiness scale is 1, which is perfect. I checked information from PAP unit. PAP unit pressure 7-20, average 10.1 cm H2O. Usage is 100 % for more then 4 hours, average 9.8 hours per night. Leak is 22 l/m, which is in acceptable range. Apnea Hypopnea Index is 3.1, which is normal. MEDICATIONS:1. Lisinopril/hydrochlorothiazide 20-12.5 mg once a day 2. Pravastatin 20 mg once a day 3. Eliquis 5 mg twice a day 4. Multaq 400 mg twice a day During physical exam: GENERAL: A pleasant patient without any distress. VITAL SIGNS: BP 130/81, HR 56, RR 16, weight 276, temperature 97.3, oxygen saturation at room air 96 % . HEENT: PERRLA, EOMI.low position of soft palate, Mallapati 4 . NECK: Supple. No JVD. LUNGS: Clear to percussion and to auscultation. Good air exchange. No wheezing or rhonchi. HEART: S1, S2 regular. ABDOMEN: Soft and nontender. Obese EXTREMITIES: No clubbing or cyanosis. HELP DESK SUPPORT SPECIALIST: Awake, alert, and oriented x3. No focal deficit. Impressions: 1. Obstructive sleep apnea-hypopnea syndrome. Patient demonstrated great comp liance with treatment, benefiting from treatment. 2. Obesity, patient lost 7 pounds since previous visit, BMI 40.7. 3. Hypertension. 4. Hyperlipidemia. 5. Status post bilateral knee replacement. 6. Status post hernia repair. Plan: 1. Continue using PAP equipment every night for the whole night. 2. To change air filter at least 1-2 times per month. 3. PAP unit should stay lower then position of the head. 4. Advised patient to remove all remaining water from humidifier canister daily and make it dry after each usage. Refill canister with fresh distilled water before each usage. 5. Sleep hygiene with regular time in bed for at least 8 hours. 6. Precautions related to driving. No driving if feel any sleepiness. 7. I will maintain prescription for PAP supplies including mask, tube, filters. 8. Follow up visit in 6 months or earlier if patient has any problems. 9. Watching and continue losing weight. Thank you very much for allowing me to participate in the management of your patient. Blu Ritchie MD, PhD, FAASM. Diplomat of [place] [employer], Sleep Medicine Board by [employer] [facility] [place]
== END ==
LOC: 3 N SLEEP 10:45
PROVIDERS: ATTEND Internal Medicine
DX: G47.33 Obstructive sleep apnea (adult) (pediatric) (principal); E66.9 Obesity, unspecified; I10 Essential (primary) hypertension; E78.5 Hyperlipidemia, unspecified; Z68.41 Body mass index [BMI] 40.0-44.9, adult; Z96.653 Presence of artificial knee joint, bilateral; Z79.899 Other long term (current) drug therapy; Z98.890 Other specified postprocedural states; Z99.89 Dependence on other enabling machines and devices
CPT/HCPCS: 99212

== ENCOUNTER → 2024-01-03 | Outpatient (CLI) | payer MEDICARE ==
[2024-01-03 10:09] VITALS: BP 119/77; PULSE 64; RESP 16; TEMP 97.7
--- NOTE | 2024-01-03 11:23 | P.PROGSL ---
Subjective DATE: 01/03/2024 FOLLOW UP VISIT. Patient with obstructive sleep apnea hypopnea syndrome return to sleep center for follow-up visit. Information from previous visit have been reviewed. Patient is using PAP equipment every night for the whole night, getting PAP supplies in time. The patient does not have significant problems with the mask, PAP unit and humidification. [place] sleepiness scale is 3, which is normal. I checked information from PAP unit. PAP unit pressure 7-20, average 10 cm H2O. Usage is 100% for more then 4 hours, average 9.6 hours per night. Leak is 26 l/m, which is in acceptable range. Apnea Hypopnea Index is 2.6, which is normal. Motor life expectancy was exceeded, but CPAP unit works well. MEDICATIONS: Please see below During physical exam: GENERAL: A pleasant patient without any distress. VITAL SIGNS: Please see below, weight 277 pounds, BMI 41. HEENT: PERRLA, EOMI.low position of soft palate, Mallapati 4 . NECK: Supple. No JVD. LUNGS: Clear to percussion and to auscultation. Good air exchange. No wheezing or rhonchi. HEART: S1, S2 regular. ABDOMEN: Soft and nontender.[] EXTREMITIES: No clubbing or cyanosis. COMMISSIONER OF RELOCATION SERVICES: Awake, alert, and oriented x3. No focal deficit. Impressions: 1. Obstructive sleep apnea-hypopnea syndrome. Patient demonstrated great compliance with treatment, benefiting from treatment. 2. Obesity, BMI 41. 3. Hyperlipidemia. 4. Hypertension. 5. Status post hernia repair. 6. Status post bilateral knee replacement. Plan: 1. Continue using PAP equipment every night for the whole night. Motor life expectancy was exceeded, but CPAP unit works well. 2. To change air filter at least 1-2 times per month. 3. PAP unit should stay lower then position of the head. 4. Advised patient to remove all remaining water from humidifier canister daily and make it dry after each usage. Refill canister with fresh distilled water before each usage. 5. Sleep hygiene with regular time in bed for at least 8 hours. 6. Precautions related to driving. No driving if feel any sleepiness. 7. I will maintain prescription for PAP supplies including mask, tube, filters. 8. Follow up visit in 6 months or earlier if patient has any problems. 9. Watching and losing weight. 10. We will replace CPAP unit, if unit will develop any problems Thank you very much for allowing me to participate in the management of your patient. Blu Ritchie MD, PhD, FAASM. Diplomat of [place] [employer], Sleep Medicine Board by [place] [employer] [facility] [place] Objective - Vital Signs Vital Signs: Vital Signs Temp 97.7 F 01/03/24 10:08 Pulse 64 01/03/24 10:08 Resp 16 01/03/24 10:08 BP 119/77 01/03/24 10:08 Pulse Ox 98 01/03/24 10:08 FiO2 Intake & Output 01/02/24 01/03/24 01/03/24 18:59 06:59 18:59 Weight 125.645 kg Home Medications: Home Medications Medication Instructions Recorded Confirmed Type Lisinopril-Hctz 20-12.5 mg 1 tab PO DAILY 12/02/21 01/03/24 History [Zestoretic 20-12.5] Acetaminophen [Tylenol Arthritis] 650 mg PO BID 06/02/22 01/03/24 History Cyanocobalamin (Vitamin B-12) 1,000 mcg PO DAILY 06/02/22 01/03/24 History [Vitamin B-12] Pravastatin Sodium [Pravachol] 20 mg PO HS 06/02/22 01/03/24 History Psyllium Husk [Fiber Capsule] 0.8 gm PO DAILY 06/02/22 01/03/24 History Apixaban [Eliquis] 5 mg PO BID 10/17/22 01/03/24 History Dronedarone [Multaq] 400 mg PO AC-BID #60 tab 10/21/22 01/03/24 Rx
== END ==
LOC: 3 N SLEEP 09:53
PROVIDERS: ATTEND Internal Medicine
DX: G47.33 Obstructive sleep apnea (adult) (pediatric) (principal); E66.9 Obesity, unspecified; E78.5 Hyperlipidemia, unspecified; I10 Essential (primary) hypertension; Z96.643 Presence of artificial hip joint, bilateral; Z99.89 Dependence on other enabling machines and devices; Z68.41 Body mass index [BMI] 40.0-44.9, adult; Z98.890 Other specified postprocedural states; Z79.899 Other long term (current) drug therapy; Z79.01 Long term (current) use of anticoagulants
CPT/HCPCS: 99212

== ENCOUNTER → 2024-10-16 | Outpatient (CLI) | payer MEDICARE ==
[2024-10-16 10:58] VITALS: BP 108/77; PULSE 71; RESP 18; TEMP 97.9
--- NOTE | 2024-10-16 11:17 | P.PROGSL ---
Subjective DATE: 10/16/2024 FOLLOW UP VISIT. Patient with obstructive sleep apnea hypopnea syndrome return to sleep center for follow-up visit. Information from previous visit have been reviewed. Patient is using PAP equipment every night for the whole night, getting PAP supplies in time. The patient does not have significant problems with the mask, PAP unit and humidification. [place] sleepiness scale is 4, which is normal. I checked information from PAP unit. PAP unit pressure 7-20, average 10.9 cm H2O. Usage is 100% for more then 4 hours, average 10.3 hours per night. Leak is 23 l/m, which is in acceptable range. Apnea Hypopnea Index is 3.2, which is normal. MEDICATIONS lisinopril, pravastatin 20 mg once a day, Eliquis 5 mg twice a day, propafenone 325 mg twice a day. During physical exam: GENERAL: A pleasant patient without any distress. VITAL SIGNS: Please see below, weight is 284.2 lbs. HEENT: PERRLA, EOMI.low position of soft palate, Mall[place]ati 4 . NECK: Supple. No JVD. LUNGS: Clear to percussion and to auscultation. Good air exchange. No wheezing or rhonchi. HEART: S1, S2 regular. ABDOMEN: Soft and nontender. Slightly obese EXTREMITIES: No clubbing or cyanosis. CONFIGURATION MANAGEMENT ADMINISTRATOR: Awake, alert, and oriented x3. No focal deficit. Impressions: 1. Obstructive sleep apnea-hypopnea syndrome. Patient demonstrated great compliance with treatment, benefiting from treatment. 2. Obesity, BMI 41.9, patient increased weight on 7 pounds comparing with previous visit. 3. Hyperlipidemia. 4. Hypertension. 5. Status post bilateral knee replacement. 6. Status post hernia repair. Plan: 1. Continue using PAP equipment every night for the whole night. CPAP unit is about 8-year-old, but continue to work well at the present time. We we will replace it, if any problems. 2. Sleep hygiene with regular time in bed for at least 7.5-8 hours 3. PAP unit should stay lower then position of the head. 4. Advised patient to remove all remaining water from humidifier canister daily and make it dry after each usage. Refill canister with fresh distilled water before each usage. 5. Watching and losing weight. 6. Precautions related to driving. No driving if feel any sleepiness. 7. I will maintain prescription for PAP supplies including mask, tube, filters. 8. Follow up visit in 8 months or earlier if patient has any problems. Thank you very much for allowing me to participate in the management of your patient. Blu Ritchie MD, PhD, FAASM. Diplomat of [place] [employer], Sleep Medicine Board by [place] [employer] [place] Objective - Vital Signs Vital Signs: Vital Signs Temp 97.9 F 10/16/24 10:55 Pulse 71 10/16/24 10:55 Resp 18 10/16/24 10:55 BP 108/77 10/16/24 10:55 Pulse Ox 97 10/16/24 10:55 FiO2 Intake & Output 10/15/24 10/16/24 10/16/24 18:59 06:59 18:59 Weight 128.877 kg Home Medications: Home Medications Medication Instructions Recorded Confirmed Type Lisinopril-Hctz 20-12.5 mg 1 tab PO DAILY 12/02/21 01/03/24 History [Zestoretic 20-12.5] Acetaminophen [Tylenol Arthritis] 650 mg PO BID 06/02/22 01/03/24 History Cyanocobalamin (Vitamin B-12) 1,000 mcg PO DAILY 06/02/22 01/03/24 History [Vitamin B-12] Pravastatin Sodium [Pravachol] 20 mg PO HS 06/02/22 01/03/24 History Psyllium Husk [Fiber Capsule] 0.8 gm PO DAILY 06/02/22 01/03/24 History Apixaban [Eliquis] 5 mg PO BID 10/17/22 01/03/24 History Dronedarone [Multaq] 400 mg PO AC-BID #60 tab 10/21/22 01/03/24 Rx
== END ==
LOC: 3 N SLEEP 10:17
PROVIDERS: ATTEND Internal Medicine
DX: G47.33 Obstructive sleep apnea (adult) (pediatric) (principal); E66.9 Obesity, unspecified; E78.5 Hyperlipidemia, unspecified; I10 Essential (primary) hypertension; Z96.653 Presence of artificial knee joint, bilateral; Z98.890 Other specified postprocedural states; Z68.41 Body mass index [BMI] 40.0-44.9, adult; Z99.89 Dependence on other enabling machines and devices
CPT/HCPCS: 99212